=== PATIENT | male | born 1990 | race African-American/Black ===

== ENCOUNTER 2017-05-08 07:22 | Emergency (ER) | payer OTHER ==
[2017-05-08 07:35] VITALS: BP 124/80; PULSE 79; TEMP 97.8; BMI 19.8
--- NOTE | 2017-05-08 08:45 | PDOC ---
History of Present Illness - General Chief Complaint: Pain Stated Complaint: PAIN Time Seen by Provider: 05/08/17 08:36 - History of Present Illness Initial Comments: 05/08/17 08:44 27 yo M with h/o sacral nerve injury, BL testicular hydroceles, polysubstance abuse, EtOH dependence who presents with multiple medical complaints. Patient with emphasis on new onset urinary incontinence this AM in setting of chronic urinary frequency following traumatic sacral nerve injury at age 11. Reports waking up this AM with urine running down leg, and unable to move legs lasting for 30 minutes to one hour. He is now able to ambulate Also complains of worsening BL LE parasthesias, radicular back pain, dysuria, increased urinary frequency, and BL inguinal/ groin pain. Chronic constipation. + cough. Denies N/ V, F/C, CP, SOB, flank pain, hematuria, BPR, lightheadedness, LOC. PCP drug use yesterday. Tobacco use 2 PPD x 13 years. Daily alcohol use. PMD Dr. Chago Key. Patient reports frequenting multiple ED's within the past 2 weeks seeking retirement and medical care. States that he requires a medical diagnosis to receive disability. Previous MRI ( 12/23/2014) Minimal disc buldging from L3- S1. Past History - Past Medical History Allergies/Adverse Reactions: Allergies Allergy/AdvReac Type Severity Reaction Status Date / Time No Known Allergies Allergy Verified 05/08/17 07:27 Home Medications: Ambulatory Orders Oxycodone HCl/Acetaminophen [Percocet 10-325 mg Tablet] 1 each PO PRN PRN Anemia: No Asthma: No Cancer: No Cardiac Disorders: No CVA: No COPD: No CHF: No DVT: No Dementia: No Diabetes: Yes (BORDERLINE-DIET CONTROLLED) GI Disorders: Yes (constipaition) HTN: No Hypercholesterolemia: Yes Seizures: No - Surgical History Abdominal Surgery: No Appendectomy: No Cardiac Surgery: No Cholecystectomy: No Orthopedic Surgery: Yes (RT WRIST FRACTURE) - Immunization History Immunization Up to Date: Yes - Suicide/Smoking/Psychosocial Hx Smoking Status: Yes Smoking History: Smoker current status UNK Have you smoked in the past 12 months: Yes Number of Cigarettes Smoked Daily: 30 Information on smoking cessation initiated: Yes 'Breaking Loose' booklet given: 01/12/15 Hx Alcohol Use: Yes Drug/Substance Use Hx: Yes (pcp) Substance Use Type: Alcohol Hx Substance Use Treatment: Yes (DRUG PROGRAM NOW) Review of Systems - Review of Systems Comments:: 05/08/17 08:44 GENERAL/CONSTITUTIONAL: + Weakness. No fever or chills HEAD, EYES, EARS, NOSE AND THROAT: No change in vision. No ear pain or discharge. No sore throat.- CARDIOVASCULAR:+ chest pain and shortness of breath RESPIRATORY: + cough. No wheezing, or hemoptysis. GASTROINTESTINAL: No nausea, vomiting, diarrhea or constipation. GENITOURINARY: + dysuria, frequency,and change in urination. MUSCULOSKELETAL: + joint and muscle pain. + back pain. SKIN: No rash NEUROLOGIC:+ change in strength/sensation. No headache, vertigo, loss of consciousness, or . ENDOCRINE: No increased thirst. No abnormal weight change HEMATOLOGIC/LYMPHATIC: No anemia, easy bleeding, or history of blood clots. ALLERGIC/IMMUNOLOGIC: No hives or skin allergy. *Physical Exam - Vital Signs Last Vital Signs Temp Pulse Resp BP Pulse Ox 97.8 F 79 18 124/80 100 05/08/17 07:29 05/08/17 07:29 05/08/17 07:29 05/08/17 07:29 05/08/17 07:29 - Physical Exam Comments: 05/08/17 08:44 GENERAL: Awake, alert, and fully oriented, in no acute distress HEAD: No signs of trauma, normocephalic, atraumatic EYES: PERRLA, EOMI, sclera anicteric, conjunctiva clear ENT:Hearing grossly normal, nares patent, oropharynx clear without exudates. Moist mucosa NECK: Normal ROM, no JVD, or masses LUNGS: No distress, speaks full sentences, clear to auscultation bilaterally HEART: Regular rate and rhythm, normal S1 and S2, no murmurs, rubs or gallops, peripheral pulses normal and equal bilaterally. ABDOMEN: Soft, nontender, normoactive bowel sounds. No guarding, no rebound. No masses EXTREMITIES : Normal inspection, Normal range of motion, no edema. No clubbing or cyanosis. NEUROLOGICAL: Cranial nerves II through XII grossly intact. Normal speech, normal gait, no focal sensorimotor deficits SKIN: Warm, Dry, normal turgor, no rashes or lesions noted. ED Treatment Course - LABORATORY CBC & Chemistry Diagram: 05/08/17 10:59 05/08/17 10:59 Medical Decision Making - Medical Decision Making 05/08/17 09:20 27 yo M with h/o sacral nerve injury, BL testicular hydroceles, polysubstance abuse, EtOH dependence who presents with multiple medical complaints with emphasis on new onset urinary incontinence, and 30 minutes of BL LE paraplegia this AM in setting of chronic urinary frequency following traumatic sacral nerve injury at age 11. . Also endorses worsening BL LE parasthesias, radicular back pain, dysuria, increased urinary frequency, BL inguinal/ groin pain, and chronic constipation. Denies N/V, F/C, CP, SOB, saddle parasthesia, flank pain, hematuria, BPR, lightheadedness, LOC. PCP drug use yesterday. Tobacco use 2 PPD x 13 years. Daily alcohol use. MRI ( 12/23/2014) Minimal disc bulging from L3- S1. Patient history and symptoms possibly 2/2 to cauda equina vs cystitis. Although absent neuro deficits on physical exam, new onset urinary incontinence , sensory changes, and report of paraplegia suspicious for cauda equina. No evidence of epidural abscess. ED Course: CBC, CMP, UA, Urine culture Bladder Scan Case management to provide assistance with housing. 05/08/17 10:43 UA: Neg 05/08/17 11:31 CBC: Unremarkable EKG: NSR with absent NELSON/STD, or TWI. Normal interval duration. 05/08/17 11:52 Patient scheduled for apt. with Dr. Pinzon at 0930 AM Monday (05/10/17) 05/08/17 12:11 CXR: Unremarkable CMP: Unremarkable Patient stable and ready for d/c with return precautions. Patient advised to f/ u with PCP on scheduled date for chronic symptom management. *DC/Admit/Observation/Transfer Diagnosis at time of Disposition: Urinary incontinence Qualifiers: Urinary Incontinence type: unspecified incontinence Qualified Code(s): R32 - Unspecified urinary incontinence - Discharge Dispostion Disposition: HOME Condition at time of disposition: Stable Admit: No - Referrals Referrals: Chago Pinzon MD [Primary Care Provider] - - Patient Instructions Printed Discharge Instructions: DI for Urinary Incontinence, DI for Cough -- Adult Additional Instructions: Please return to the emergency department with any new or worsening symptoms or concerns. Please follow up with Dr. Key in office Monday at 0930 ( May 10 2017). - Post Discharge Activity - Attestations Physician Attestion: 05/08/17 12:00 I attest to the documentation in this note.
[2017-05-08 10:18] LABS: URINE APPEARANCE CLEAR; URINE BILIRUBIN NEGATIVE (NEGATIVE); URINE BLOOD NEGATIVE (NEGATIVE); URINE COLOR LTYELLOW; URINE GLUCOSE (UA) NEGATIVE (NEGATIVE); URINE KETONE NEGATIVE (NEGATIVE); URINE LEUK ESTERASE NEGATIVE (NEGATIVE); URINE NITRITE NEGATIVE (NEGATIVE); URINE PROTEIN NEGATIVE (NEGATIVE); URINE UROBILINOGEN NEGATIVE mg/dL (0.2-1.0)
[2017-05-08 11:23] LABS: BASO % 0.4 % (0-2.0); EOS % 0.7 % (0-4.5); HEMATOCRIT 42.9 % (35.4-49); HEMOGLOBIN 13.9 GM/dL (11.7-16.9); MCH 30.7 pg (25.7-33.7); MCHC 32.5 g/dl (32.0-35.9); MEAN CELL VOLUME 94.5 fl (80-96); MEAN PLT VOLUME 7.3 fl (7.5-11.1); MONO % 8.9 % (3.8-10.2); PLATELET COUNT 218 K/MM3 (134-434); RBC 4.54 M/mm3 (4.00-5.60); RDW 13.3 % (11.9-15.9); WHITE BLOOD COUNT 4.5 K/mm3 (4.0-10.0)
--- NOTE | 2017-05-08 11:23 | PDOC ---
Attending Attestation - Resident Resident Name: Gurjit Rubio - ED Attending Attestation I have performed the following: I have examined & evaluated the patient, The case was reviewed & discussed with the resident, I agree w/resident's findings & plan, Exceptions are as noted - HPI HPI: 05/08/17 11:17 27-year-old male with history of chronic lumbosacral nerve pain secondary to reported injury when he was 11 years old, undomiciled, p/w multiple complaints including a reported episode of incontinence and leg weakness. Currently asymptomatic and looking for a place to stay, as well as a medical diagnosis so he can apply for disability. Pt admits to me that his presentation is not acute, that he simply needs a addiction social worker so he can collect disability. - Physicial Exam PE: 05/08/17 11:24 vss dry cough lungs clear ambulating in the ER on his own and steadily, full motor strength x4, nvi - Medical Decision Making 05/08/17 11:24 Patient seen and evaluated with the resident. I agree with the overall evaluation, assessment, and management with the following summary of visit: 27-year-old male with chronic nerve pain, polysubstance abuse presents for social work referral and medical evaluation for disability. There are no acute clinical issues, he is neurologically intact, but he does have this secondary gain. He does have a cough, so we'll rule out pneumonia. Chest x-ray, labs Case management involved Likely discharge 05/08/17 12:10 workup wnl, spoke with CM at length, agrees with d/c plan, will give clinic referral Heart Score/ECG Review #1 ECG reviewed & interpreted by me at: 11:00 General ECG Interpretation: Sinus Rhythm, Normal Rate (65), Normal Intervals (j- point early repolarization), No acute ischemic changes
[2017-05-08 11:36] LABS: INR 1.08 (0.82-1.09); PROTHROMBIN TIME (PATIENT) 12.2 SEC (9.98-11.88)
[2017-05-08 12:01] LABS: ALBUMIN 3.9 g/dl (3.4-5.0); ANION GAP 5 (8-16); BILIRUBIN,TOTAL 0.8 mg/dL (0.2-1.0); BLOOD UREA NITROGEN 10 mg/dL (7-18); CALCIUM 8.5 mg/dL (8.5-10.1); CHLORIDE 106 mmol/L (98-107); CO2 32 mmol/L (21-32); CREATININE 0.9 mg/dL (0.7-1.3); GLUCOSE,RANDOM 139 mg/dL (74-106); POTASSIUM 4.2 mmol/L (3.5-5.1); SGOT/AST 28 U/L (15-37); SGPT/ALT 23 U/L (12-78); SODIUM 143 mmol/L (136-145); TOT PROT 6.3 g/dl (6.4-8.2)
[2017-05-08 12:02] LABS: ALK PHOS 55 U/L (45-117)
--- NOTE | 2017-05-08 12:49 | EKG ---
Test Reason : Blood Pressure : / mmHG Vent. Rate : 065 BPM Atrial Rate : 065 BPM P-R Int : 176 ms QRS Dur : 100 ms QT Int : 364 ms P-R-T Axes : 069 084 072 degrees QTc Int : 378 ms NORMAL SINUS RHYTHM EARLY REPOLARIZATION NORMAL ECG WHEN COMPARED WITH ECG OF 12-JAN-2015 08:03, NO SIGNIFICANT CHANGE WAS FOUND Confirmed by JAMES KLEIN MD ([id number]) on 05/08/2017 12:48:30 PM Referred By: Confirmed By:JAMES KLEIN MD
== END 2017-05-08 12:31 | disposition home or self-care (01) ==
LOC: JER 07:22
DX: R32 Unspecified urinary incontinence (principal); G82.20 Paraplegia, unspecified; T14.8XXS Other injury of unspecified body region, sequela; X58.XXXS Exposure to other specified factors, sequela; F17.210 Nicotine dependence, cigarettes, uncomplicated
CPT/HCPCS: 36415; 71045-TC; 80053; 81003; 85025; 85610; 87086; 93005; 93010; 99282-25